=== PATIENT | female | born 1930 | race Caucasian/White ===

== ENCOUNTER 2019-03-09 18:17 | Observation (INO) | payer MEDICARE, OTHER ==
[2019-03-09 18:57] LABS: #Basophils 0.1 thou/uL (0.0-0.2); #Eosinphils 0.4 thou/uL (0.0-0.7); #Lymphocytes 1.1 thou/uL (1.20-3.40); #Monocytes 0.5 thou/uL (0.11-0.59); #Neutrophils 5.3 thou/uL (1.40-6.50); %Basophils 0.9 % (0.0-1.0); %Lymphocytes 14.5 % (21.0-51.0); %Monocytes 6.2 % (0.0-10.0); %Neutrophils 72.5 % (42.0-75.0); Hemoglobin 10.8 g/dL (12.0-16.0); Mean Corpuscular HGB CONC 32.5 g/dL (32.0-36.0); Mean Corpuscular Hemoglobin 30.5 pg (27.0-31.0); Mean Platelet Volume 7.5 fL (7.4-10.4); Platelet Count 260 thou/uL (130-400); RBC Distribution Width 13.2 % (11.5-14.5); Red Blood Cell (RBC) Count 3.52 mill/uL (4.20-5.40); White Blood Cell (WBC) Count 7.2 thou/uL (4.8-10.8)
[2019-03-09 19:21] LABS: ALT (SGPT) 20 U/L (8-55); AST (SGOT) 35 U/L (5-34); Albumin 3.7 g/dL (3.4-4.8); Alkaline Phosphatase 433 U/L (40-150); Anion Gap 15 mmol/L (10-20); BUN (Urea Nitrogen) 31 mg/dL (9.8-20.1); Bilirubin, Total 0.4 mg/dL (0.2-1.2); CK (CPK) 83 U/L (29-168); Calc. Creatinine Clearance 0 mL/min (70-130); Calcium 9.7 mg/dL (7.8-10.44); Carbon Dioxide 22 mmol/L (23-31); Chloride 108 mmol/L (98-107); Estimated GFR-MDRD 32; Globulin 3.5 g/dL (2.4-3.5); Glucose 145 mg/dL (83-110); Protein, Total 7.2 g/dL (6.0-8.3); Sodium 139 mmol/L (136-145)
--- NOTE | 2019-03-09 19:23 | RAD ---
PORTABLE AP CHEST X-RAY: HISTORY: Cough. COMPARISON: None available. FINDINGS: The cardiac silhouette is magnified by projection. The pulmonary vasculature are within normal limit s. There is no consolidation or pleural fluid seen within the lungs bilaterally. Vascular calcifica tions are seen in the thoracic aorta. There is severe right glenohumeral osteoarthropathy with what appears to be remodeling of the humeral head and glenoid. Left glenohumeral osteoarthropathy is also present. There is osteopenia. IMPRESSION: No acute cardiopulmonary process. POS: ANNABELLE
[2019-03-09 23:22] LABS: Troponin I Less than 0.010 ng/mL (< 0.028)
[2019-03-10] MEDS ORDERED: Ondansetron PF 4 MG/2 ML Vial IVP PRN ×2 (01:10→04:35)
[2019-03-10] MEDS ORDERED: Ondansetron ODT 4 MG TAB SL PRN (01:10)
[2019-03-10 01:30] LABS: Troponin I Less than 0.010 ng/mL (< 0.028)
--- NOTE | 2019-03-10 02:24 | HP ---
PRIMARY CARE PROVIDER: Dr. Artemio Nielsen. CHIEF COMPLAINT: Cough, shortness of breath. HISTORY OF PRESENT ILLNESS: This is an 88-year-old female who presents to [facility] and transferred from [facility] where she has been convalescing after a recent admission for complicated urinary tract infection requiring IV antibiotic therapies through a PICC line method over the last several weeks. The patient is also received physical and occupational therapy during her stay at the [facility]. The patient states she was attempting to transfer to a wheelchair when she apparently fell fracturing her right forearm. The patient was placed in a fiberglass cast approximately 2 weeks prior to this evaluation and monitored by her primary doctor at [facility] [place]. The patient admits to increasing shortness of breath, nonproductive cough over the last several weeks. The patient apparently was given a trial of increased Lasix dosing as well as bronchodilator therapy with albuterol metered-dose inhaler as well as DuoNebs without specific improvement in her symptoms. The patient does admit to increased swelling of her lower extremities, but is unclear on the exact duration. The patient does not keep the legs elevated at all times while in bed and has had compression wraps intermittently placed on the lower legs. The patient admits to increased generalized weakness requiring maximal assistance with transfers from her bed to a wheelchair or a walker, standing for several seconds, then moving to a wheelchair or a bedside toilet. The patient denied any documented fever, chills, hemoptysis. The patient denies any exposure history, but states she has been in [facility] over the last 4 weeks. The patient was actually slated for returning home in the next few days, negated by increased cough, shortness of breath, and progressive weakness. The patient states she has since completed IV antibiotic therapy for her urinary tract infection and denies any urinary complaints. In the emergency room, the patient underwent general evaluation, receiving bronchodilator therapy with DuoNeb in addition to Kayexalate after metabolic survey showed a potassium level of 6.0 and a creatinine of 1.53. BNP was noted at 121 with chest imaging showing no acute process. PAST MEDICAL HISTORY: 1. Resistant urinary tract infection status post IV antibiotic therapy x3-4 weeks, completed. 2. Deconditioning. 3. History of falls. 4. Right forearm fracture. 5. Chronic kidney disease, stage 2 to 3. 6. Diabetes mellitus type 2. 7. Question of congestive heart failure, unknown type. 8. Hypertension. 9. Depression. 10. Iron-deficiency anemia. 11. Hyperlipidemia. 12. Osteoarthritis. PAST SURGICAL HISTORY: 1. Status post appendectomy. 2. Status post tonsillectomy. CURRENT MEDICATIONS: 1. Aspirin 81 mg p.o. b.i.d.. 2. Vitamin B12/folic acid 1000 mcg/400 mcg 1 tablet p.o. daily. 3. Ferrous sulfate 325 mg p.o. daily. 4. Furosemide 20 mg p.o. b.i.d. 5. Glipizide 5 mg p.o. daily. 6. Megace 2 tablets p.o. b.i.d. 7. Metoprolol tartrate 25 mg half a tablet p.o. b.i.d. 8. Nystatin applied to affected area b.i.d. p.r.n. 9. Sertraline 25 mg p.o. daily. 10. Tramadol 50 mg p.o. q.8 hours p.r.n. 11. Tylenol 325 mg 2 tablets p.o. q.6 hours p.r.n. pain. 12. Potassium chloride 10 mEq p.o. daily. ALLERGIES: TO CODEINE SULFATE, DOXYCYCLINE, LISINOPRIL, SIMVASTATIN, SULFA. FAMILY HISTORY: Positive for hypertension, coronary artery disease. SOCIAL HISTORY: The patient is , accompanied by her daughter in the hospital. Current residing at [facility] over the last month. Transfers with maximal assistance from bed to wheelchair. Recent fall with right distal radius fracture. No current alcohol, tobacco, or illicit drug use. REVIEW OF SYSTEMS: CONSTITUTIONAL: Negative for weight loss or gain, ability to conduct usual activities. SKIN: Negative for rash, itching. EYES: Negative for double vision, pain. ENT/MOUTH: Negative for nose bleeding, neck stiffness, pain, tenderness. CARDIOVASCULAR: Negative for palpitations, dyspnea on exertion, orthopnea. RESPIRATORY: Negative for shortness of breath, wheezing, cough, hemoptysis, fever or night sweats. GASTROINTESTINAL: Negative for poor appetite, abdominal pain, heartburn, nausea, vomiting, constipation, or diarrhea. GENITOURINARY: Negative for urgency, frequency, dysuria, nocturia. MUSCULOSKELETAL: Negative for pain, swelling. NEUROLOGIC/PSYCHIATRIC: Negative for anxiety, depression. ALLERGY/IMMUNOLOGIC: Negative for skin rash, bleeding tendency. Otherwise, negative except as stated per HPI. PHYSICAL EXAMINATION: VITAL SIGNS: On admission, blood pressure 160/87, pulse 81, respiratory rate is 20, temperature 97.8 degrees Fahrenheit, O2 saturation 96% on room air. GENERAL APPEARANCE: This is an 88-year-old female, alert and responsive, hard of hearing, in no acute distress. HEENT: Pupils are equal, round, reactive to light and accommodation. Extraocular muscles are intact. No scleral icterus. No conjunctival injection. Nares patent. OP is clear. Teeth in fair repair. Ecchymosis in the infraorbital region with contusion of the left frontal region. NECK: Supple. No cervical adenopathy. No thyromegaly. No carotid bruits. No JVD appreciated. Cervical spine with full active and passive range of motion. No meningeal signs noted. CHEST: Diminished breath sounds bilaterally with coarse breath sounds bilaterally. CARDIOVASCULAR: S1, S2 without noted murmur, rub, or gallop. ABDOMEN: Obese, soft, nontender, and nondistended. Bowel sounds are positive in all 4 quadrants. There is no hepatosplenomegaly. No abdominal bruits. No rebound or guarding appreciated. EXTREMITIES: Warm and dry with fair turgor. Edema noted bilaterally to the knees. Skin breakdown noted on the left mendoza. Pulses are palpable distally at the dorsalis pedis, posterior tibial, and popliteal arteries bilaterally. Capillary refill less than 2 seconds. Right forearm with fiberglass cast in place. Moves upper extremity on command. NEUROLOGIC: Cranial nerves 2 through 12 are grossly intact. Not observed ambulatory during this exam. PERTINENT LABORATORY AND X-RAY FINDINGS: Sodium 139, potassium 6.0, chloride 108, CO2 of 22, BUN 31, creatinine 1.53, estimated GFR of 32, glucose 145, calcium 9.7. AST 35, ALT of 20, alkaline phosphatase 433. Troponin I negative x2. BNP 121. CBC showed a white blood cell count of 7.2, hemoglobin 11, hematocrit 33, and platelet count 260. Portable chest x-ray, dated 03/09/2019, showed no acute cardiopulmonary process. EKG, dated 03/09/2019, by my interpretation shows a sinus mechanism with heart rates in the 70s. Attenuated R-waves noted in the precordial leads. Left axis deviation. No acute ST-T wave changes appreciated. ASSESSMENT AND PLAN: 1. Acute kidney injury, likely iatrogenic in conjunction with suspected underlying chronic kidney disease. Avoid nephrotoxic agents and limit contrast exposure. Serial creatinine monitoring. 2. Hyperkalemia. Suspect iatrogenic. Hold potassium supplementation. Kayexalate initiated in the emergency room. Repeat potassium level in the a.m. 3. Bronchitis, acute on chronic. We will provide Mucinex 600 mg p.o. b.i.d. with additional prednisone 40 mg p.o. x1 now. DuoNeb q.4 hours. 4. Deconditioning. General fall risk precautions. PT/OT evaluation for general functional assessment. 5. Falls. See above. General fall risk precautions. Maximal assistance with transfers. 6. Right distal radius fracture. Continue short-arm fiberglass cast. General range of motion exercises. 7. Diabetes mellitus type 2. Insulin sliding scale for reflexive coverage. ADA diet. Accu-Cheks before meals and at bedtime. 8. Prophylaxis. Sequential compression devices held due to lower extremity edema. Pepcid 20 mg p.o. b.i.d. PT evaluation for functional assessment. General fall risk precautions. 9. Code status is full. Surrogate medical decision maker is the patient's daughter. Job ID: [id number]
[2019-03-10] MEDS ORDERED: Diabetic Tussin 200 MG/10 ML UDCUP PO PRN (04:35)
[2019-03-10] MEDS ORDERED: Acetaminophen 500 MG TAB PO PRN (04:35)
[2019-03-10] MEDS ORDERED: Benzonatate 100 MG CAP PO PRN (04:35)
[2019-03-10] MEDS ORDERED: HumaLOG 300 UNITS/3 ML VIAL SC PRN (04:35)
[2019-03-10] MEDS ORDERED: Dextrose 50% Abboject 50 ML SYRINGE SLOW IVP PRN (04:35)
[2019-03-10] MEDS ORDERED: hydrALAZINE 20 MG/ML VIAL SLOW IVP PRN (04:35)
[2019-03-10] MEDS ORDERED: Dextrose 5% in Water 1,000 ML IV PRN (04:35)
[2019-03-10] MEDS ORDERED: Ondansetron ODT 4 MG TAB PO PRN (04:35)
[2019-03-10] MEDS ORDERED: predniSONE 20 MG TAB PO SCH ×2 (04:45→08:00)
[2019-03-10] MEDS ORDERED: guaiFENesin ER 600 MG TAB PO SCH (05:00)
[2019-03-10] MEDS: Furosemide 40 MG/4 ML VIAL SLOW IVP SCH ×2 (06:27→15:16)
[2019-03-10 07:45] VITALS: BMI 38.8
[2019-03-10] MEDS: Famotidine 20 MG TAB PO SCH (10:13)
[2019-03-10] MEDS: Enoxaparin Sodium 30 MG/0.3 ML SYRINGE SC SCH (10:14)
[2019-03-10 10:25] LABS: Anion Gap 18 mmol/L (10-20); BUN (Urea Nitrogen) 26 mg/dL (9.8-20.1); Calc. Creatinine Clearance 48 mL/min (70-130); Calcium 9.9 mg/dL (7.8-10.44); Carbon Dioxide 21 mmol/L (23-31); Chloride 107 mmol/L (98-107); Estimated GFR-MDRD 42; Glucose 114 mg/dL (83-110); Potassium 4.6 mmol/L (3.5-5.1); Sodium 141 mmol/L (136-145)
[2019-03-10] MEDS: Azithromycin 500 MG in Sodium Chloride 0.9% 250 ML 250 ML IVPB SCH (15:36)
--- NOTE | 2019-03-10 19:03 | PRG ---
DATE OF SERVICE: 03/10/2019 SUBJECTIVE: Ms. Reema Gibson is a pleasant 88-year-old female with past medical history significant for recent hospitalization with complicated urinary tract infection, diastolic congestive heart failure, frequent falls, and chronic kidney disease, who presented to the hospital with complaints of worsening shortness of breath. The patient comes from [facility]. The patient continues to complain of fairly severe cough and wheezing. She states that her symptoms have been mildly improving since her admission. No nausea or vomiting. Appetite remains good. No dysuria. OBJECTIVE: VITAL SIGNS: Blood pressure is 132/73, pulse is 91, O2 saturation is 96% on room air, and respirations are 16. GENERAL: The patient is an overweight female, resting in bed. HEENT: Head is normocephalic, she does have ecchymosis underneath both orbits. Mucous membranes are moist. NECK: Supple. Trachea is midline. CV: S1 and S2. Systolic murmur grade 1/6, mildly tachycardic, regular rhythm. LUNGS: Regular respiratory rate and pattern, diffuse rhonchi and wheezing noted in all lung adler. ABDOMEN: Positive bowel sounds. Soft, obese, nontender. EXTREMITIES: No edema. NEUROLOGIC: The patient is nonfocal. MUSCULOSKELETAL: The patient has a cast present on the right forearm. She has a wound that is dressed on the left. LABORATORY DATA: Sodium 141, potassium 4.6, anion gap is 18, BUN is 26, and creatinine 1.2. Troponin was negative x3. BNP was 120. ASSESSMENT: 1. Shortness of breath, wheezing, productive cough, secondary to acute on chronic bronchitis exacerbation. 2. Hyperkalemia, on arrival, resolved. 3. Acute on chronic kidney disease, the patient has underlying chronic kidney disease stage 3, initial creatinine 1.53, now 1.2. 4. Chronic diastolic heart failure. 5. Frequent falls, rendering the patient nonambulatory. Deconditioning, secondary to above. 6. Recent fall with distal radius fracture, currently in cast. 7. Type 2 diabetes mellitus. PLAN: At this time, we will more aggressively treat the patient's lung disease with IV steroids. We will initiate antibiotic with azithromycin given the fact that she is at high risk for complication. She has had some mild tachycardia, but we are holding beta christianne in the light of active wheezing. We will continue scheduled breathing treatments and pulmonary toilet. Further recommendations based on hospital course. Job ID: [id number]
[2019-03-10] MEDS: methylPREDNISolone Sod Succ 40 MG VIAL IVP SCH (19:33)
[2019-03-10] MEDS: HumaLOG 300 UNITS/3 ML VIAL SC PRN (19:40)
[2019-03-10] MEDS: guaiFENesin ER 600 MG TAB PO SCH (20:50)
[2019-03-11] MEDS: methylPREDNISolone Sod Succ 40 MG VIAL IVP SCH ×3 (00:39→11:36)
[2019-03-11 05:56] LABS: Hemoglobin 9.8 g/dL (12.0-16.0); Hypochromia SLIGHT = 6-15 cells (100X) (0-5/hpf); Lymphocytes 5 % (21-51); MDiff Complete? YES; Mean Corpuscular HGB CONC 32.7 g/dL (32.0-36.0); Mean Corpuscular Hemoglobin 30.1 pg (27.0-31.0); Mean Platelet Volume 6.9 fL (7.4-10.4); Neutrophil 95 % (42-75); Platelet Count 239 thou/uL (130-400); RBC Distribution Width 12.8 % (11.5-14.5); Red Blood Cell (RBC) Count 3.26 mill/uL (4.20-5.40); White Blood Cell (WBC) Count 4.9 thou/uL (4.8-10.8)
[2019-03-11] MEDS: HumaLOG 300 UNITS/3 ML VIAL SC PRN ×2 (05:57→11:35)
[2019-03-11 06:03] LABS: Anion Gap 14 mmol/L (10-20); BUN (Urea Nitrogen) 33 mg/dL (9.8-20.1); Calc. Creatinine Clearance 39 mL/min (70-130); Calcium 9.1 mg/dL (7.8-10.44); Carbon Dioxide 24 mmol/L (23-31); Chloride 102 mmol/L (98-107); Estimated GFR-MDRD 38; Glucose 293 mg/dL (83-110); Potassium 4.1 mmol/L (3.5-5.1); Sodium 136 mmol/L (136-145)
[2019-03-11] MEDS: guaiFENesin ER 600 MG TAB PO SCH (08:33)
[2019-03-11] MEDS: Famotidine 20 MG TAB PO SCH (08:33)
[2019-03-11] MEDS: Enoxaparin Sodium 30 MG/0.3 ML SYRINGE SC SCH (08:33)
[2019-03-11] MEDS ORDERED: Furosemide 20 MG/2 ML VIAL SLOW IVP SCH (09:00)
[2019-03-11 11:25] VITALS: TEMP 98.3
[2019-03-11] MEDS: Azithromycin 500 MG in Sodium Chloride 0.9% 250 ML 250 ML IVPB SCH (15:02)
[2019-03-11 15:19] VITALS: BP 130/66
--- NOTE | 2019-03-11 15:20 | EKG ---
Test Reason : Blood Pressure : / mmHG Vent. Rate : 075 BPM Atrial Rate : 075 BPM P-R Int : 164 ms QRS Dur : 116 ms QT Int : 402 ms P-R-T Axes : 055 -26 052 degrees QTc Int : 448 ms Normal sinus rhythm Cannot rule out Anterior infarct , age undetermined Left axis deviation Abnormal ECG Confirmed by DAJA ARORA, EPI ([id number]), photo editor ZAHIDA LIVINGSTON ([id number]) on 03/11/2019 3:20:07 PM Referred By: Confirmed By:EPI FARNSWORTH MD
--- NOTE | 2019-03-11 18:11 | DIS ---
DATE OF ADMISSION: 03/10/2019 DATE OF DISCHARGE: 03/11/2019 CHIEF COMPLAINT ON ADMISSION: Cough, wheezing, and shortness of breath. DISCHARGE DIAGNOSES: 1. Shortness of breath, wheezing, and productive cough secondary to [id number] bronchitis exacerbation, symptomatically much improved since arrival. 2. Hyperkalemia on arrival, resolved. 3. [id number] stage 3 kidney disease, resolved. 4. Chronic diastolic heart failure. 5. Frequent falls rendering the patient nonambulatory. 6. Deconditioning secondary to above. 7. Recent fall with distal radius fracture, currently in cast. 8. Type 2 diabetes mellitus. 9. History of recent drug-resistant urinary tract infection, requiring 3 to 4 weeks of intravenous antibiotics, resolved. BRIEF HOSPITAL COURSE: The patient is a pleasant, 88-year-old, female, who presented to the [facility] from [facility] with complaints of worsening shortness of breath, cough, and wheezing. The patient complained of quite severe cough resulting in at least 1 episode of emesis prior to arrival. Lab work notable for a BNP of only 120. She did undergo echocardiogram, which revealed preserved EF along with diastolic dysfunction. She was given Kayexalate, and her potassium quickly improved. Her creatinine trended down from 1.5 to the 1.2 to 1.3 range. She was treated aggressively with IV steroids, IV azithromycin, and scheduled breathing treatments with much improvement in her symptoms. Her cough has improved. She is saturating well on room air. The patient is not hypoxic. She did have some brief tachycardia secondary to DuoNeb and holding metoprolol in the setting of active wheezing, this has resolved as well. The patient will be discharged back to [facility] today. DISCHARGE DISPOSITION: [facility]. DISCHARGE CONDITION: Stable. DISCHARGE INSTRUCTIONS AND FOLLOWUP: New medications for the patient will be to continue azithromycin 250 mg tablet for the next 3 days. She will continue DuoNeb as needed along with a Medrol Dosepak. The only other change to the patient's medications will be that I have decreased her metoprolol tartrate from 25 mg p.o. b.i.d., to 12.5 mg p.o. b.i.d., this to be restarted when all expiratory wheeze has completely resolved. She will follow up with her primary care physician in the next week. As mentioned, her presenting symptoms have resolved, and she will be discharged today in stable condition. The care of this patient has been discussed with Dr. James, who agrees with discharge plan as above and has also seen the patient. Job ID: [id number]
== END 2019-03-11 15:32 ==
LOC: ERS 18:17 → 2SE 03-10 00:44
PROVIDERS: ADMIT Internal Medicine; ATTEND Internal Medicine
DX: J20.9 Acute bronchitis, unspecified (principal); I13.0 Hypertensive heart and chronic kidney disease with heart failure and stage 1 through stage 4 chronic kidney disease, or unspecified chronic kidney disease; E11.22 Type 2 diabetes mellitus with diabetic chronic kidney disease; N18.3 Chronic kidney disease, stage 3 (moderate); I50.32 Chronic diastolic (congestive) heart failure; N17.9 Acute kidney failure, unspecified; J42 Unspecified chronic bronchitis; E87.5 Hyperkalemia; R53.81 Other malaise; D50.9 Iron deficiency anemia, unspecified; D32.9 Benign neoplasm of meninges, unspecified; E78.5 Hyperlipidemia, unspecified; M19.90 Unspecified osteoarthritis, unspecified site; Z79.82 Long term (current) use of aspirin; Z79.899 Other long term (current) drug therapy; Z88.1 Allergy status to other antibiotic agents; Z88.2 Allergy status to sulfonamides
CPT/HCPCS: 71045; 80048 ×2; 80053; 82550; 82962 ×2; 83880; 84484 ×3; 85007; 85025; 85027; 93005; 93306; 94640 ×4; 96372 ×2; 96374; 96375; 96376 ×2; 97139 ×3; 97530; 97535; 99285; G0378 ×3; 36415; 36416; J0456; J1650; J1940; J2920; J7050; J7512; J7620